=== PATIENT | female | born 1980 | race Hispanic/Latino ===

== ENCOUNTER 2018-06-22 17:49 | Emergency (ER) | payer OTHER, SELFPAY ==
[2018-06-22] MEDS ORDERED: HYDROCODONE/APAP 5/325 MG TAB ONE (20:02)
[2018-06-22] MEDS ORDERED: ONDANSETRON 4 MG (ODT) TAB ONE (20:02)
--- NOTE | 2018-06-22 20:23 | RAD REPORT ---
EXAM DESCRIPTION: CT - Head Brain Wo Cont - 06/22/2018 8:04 pm CLINICAL HISTORY: HEADACHE COMPARISON: No comparisons TECHNIQUE: All CT scans are performed using dose optimization technique as appropriate and may inclu de automated exposure control or mA/KV adjustment according to patient size. FINDINGS: No intracranial hemorrhage, hydrocephalus or extra-axial fluid collection.No areas of brai n edema or evidence of midline shift. The paranasal sinuses and mastoids are clear. The calvarium is intact. IMPRESSION: No acute intracranial abnormality.
--- NOTE | 2018-06-22 21:11 | ER ---
Nurse's Notes [facility] Name: Jacquelin Remy Age: 37 yrs Sex: Female : 1980 Arrival Date: 06/22/2018 Time: 17:54 Bed 2 Private MD: Diagnosis: Acute headache Presentation: 06/22 17:59 Presenting complaint: Patient states: i had this headache for 2 weeks, but today is the hj worse; more on the back of my head, reports nausea and vomited x 3; took ibuprofen 1030 am today;. Transition of care: patient was not received from another setting of care. Onset of symptoms was June 22, 2018. Risk Assessment: Do you want to hurt yourself or someone else? Patient reports no desire to harm self or others. Initial Sepsis Screen: Does the patient meet any 2 criteria? No. Patient's initial sepsis screen is negative. Does the patient have a suspected source of infection? No. Patient's initial sepsis screen is negative. Care prior to arrival: None. 17:59 Method Of Arrival: Ambulatory 17:59 Acuity: JANICE 3 hj Triage Assessment: 18:01 Headache History: The patient has had previous headaches. General: Appears in no hj apparent distress. uncomfortable, Behavior is calm, cooperative, appropriate for age. Pain: Complains of pain in head Pain currently is 10 out of 10 on a pain scale. Pain began 1 day ago. Also complains of nausea. Neuro: Level of Consciousness is awake, alert, obeys commands, Oriented to person, place, time, situation, Appropriate for age. 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 - Social history:: Smoking status: Patient/guardian denies using tobacco, Patient/guardian denies using alcohol. - Ebola Screening: : Patient negative for fever greater than or equal to 101.5 degrees Fahrenheit, and additional compatible Ebola Virus Disease symptoms Patient denies exposure to infectious person Patient denies travel to an Ebola-affected area in the 21 days before illness onset. Screenin:01 Abuse screen: Denies threats or abuse. Denies injuries from another. Nutritional hj screening: No deficits noted. Tuberculosis screening: No symptoms or risk factors identified. Fall Risk None identified. Assessment: 20:00 General: Appears in no apparent distress. uncomfortable, Behavior is calm, cooperative, tl2 appropriate for age. Pain: Complains of pain in right occipital area and right side of the back of head. Neuro: Level of Consciousness is awake, alert, obeys commands, Oriented to person, place, time, situation. Cardiovascular: Denies chest pain. Respiratory: Airway is patent Respiratory effort is even, unlabored, Respiratory pattern is regular, symmetrical. GI: Reports nausea. : No signs and/or symptoms were reported regarding the genitourinary system. Derm: Skin is pink, warm \T\ dry. 21:19 Reassessment: Patient appears in no apparent distress at this time. Patient and/or tl2 family updated on plan of care and expected duration. Pain level reassessed. Patient is alert, oriented x 3, equal unlabored respirations, skin warm/dry/pink. Pt states nausea is gone and headache has improved slightly. Pt verbalized understanding of discharge instructions, need for follow up and prescription usage Patient states feeling better. Vital Signs: 18:02 BP 118 / 84; Pulse 99; Resp 18; Temp 97.2(TE); Pulse Ox 100% on R/A; Weight 54.43 kg; hj Height 5 ft. 3 in. (160.02 cm); Pain 10/10; 19:48 BP 124 / 75; Pulse 81; Resp 16; Pulse Ox 98% on R/A; mt 21:02 BP 106 / 74; Pulse 77; Resp 18; Pulse Ox 99% on R/A; tl2 18:02 Body Mass Index 21.26 (54.43 kg, 160.02 cm) ED Course: 17:54 Patient arrived in ED. mr 18:00 Triage completed. 18:01 Arm band placed on right wrist. 18:03 Patient has correct armband on for positive identification. Bed in low position. Call light in reach. Side rails up X 1. 19:38 Toan Mares MD is Attending Physician. pkl 19:54 Radiology exam delayed due to test not completed at this time. ok 19:59 Brittani Noble RN is Primary Nurse. tl2 20:[address] ok 20:04 CT completed. Patient tolerated procedure well. Patient moved back from MD. ok 20:04 CT Head Brain wo Cont In Process Unspecified. EDMS 21:10 Jeremy Horvath MD is Referral Physician. pkl 21:19 No provider procedures requiring assistance completed. Patient did not have IV access tl2 during this emergency room visit. Administered Medications: 19:58 Drug: Zofran 4 mg Route: PO; tl2 21:23 Follow up: Response: No adverse reaction; Nausea is decreased tl2 19:59 Drug: [place] 5 mg-325 mg 1 tabs Route: PO; tl2 21:22 Follow up: Response: No adverse reaction; Pain is decreased tl2 Outcome: 21:10 Discharge ordered by . pkl 21:19 Discharged to home ambulatory, with family. tl2 21:19 Condition: stable 21:19 Discharge instructions given to patient, Instructed on discharge instructions, follow up and referral plans. medication usage, Demonstrated understanding of instructions, follow-up care, medications, Prescriptions given X 2. 21:23 Patient left the ED. tl2 Signatures: Dispatcher [employer] EDMS Toan Mares MD MD pkl Jerica Adams mr Tad Bob RN RN Brittani Worrell RN RN tl2 Kavon Cole Mor[place] co Corrections: (The following items were deleted from the chart) 18:04 18:02 Pulse 99bpm; Resp 18bpm; Pulse Ox 100% RA; Temp 97.2F Temporal; 54.43 kg; Height hj 5 ft. 3 in.; BMI: 21.2; Pain 10/10; hj 19:54 19:54 Patient moved to [facility]
--- NOTE | 2018-06-22 21:12 | EDPHYS ---
Physician Documentation [facility] Name: Jacquelin Remy Age: 37 yrs Sex: Female : 1980 Arrival Date: 06/22/2018 Time: 17:54 Bed 2 Private MD: ED Physician Toan Mares HPI: 06/22 19:50 This 37 yrs old Female presents to ER via Ambulatory with complaints of pkl Headache, Vomiting. 19:50 The patient complains of pain to the top of head, left side of the back of head, left pkl occipital area, right side of the back of head and right occipital area. The patient describes the headache as constant. Onset: The symptoms/episode began/occurred 2 week(s) ago, and became worse today. Associated signs and symptoms: Pertinent positives: nausea, vomiting. 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 - Social history:: Smoking status: Patient/guardian denies using tobacco, Patient/guardian denies using alcohol. - Ebola Screening: : Patient negative for fever greater than or equal to 101.5 degrees Fahrenheit, and additional compatible Ebola Virus Disease symptoms Patient denies exposure to infectious person Patient denies travel to an Ebola-affected area in the 21 days before illness onset. ROS: 19:50 Eyes: Negative for injury, pain, redness, and discharge, ENT: Negative for injury, pkl pain, and discharge, Neck: Negative for injury, pain, and swelling, Cardiovascular: Negative for chest pain, palpitations, and edema, Respiratory: Negative for shortness of breath, cough, wheezing, and pleuritic chest pain. 19:50 Abdomen/GI: Positive for nausea and vomiting. 19:50 Back: Negative for acute changes. 19:50 : Negative for urinary symptoms. 19:50 MS/extremity: Negative for acute changes. 19:50 Skin: Negative for rash. 19:50 Neuro: Positive for headache. Exam: 19:50 Head/Face: Normocephalic, atraumatic. Eyes: Pupils equal round and reactive to light, pkl extra-ocular motions intact. Lids and lashes normal. Conjunctiva and sclera are non-icteric and not injected. Cornea within normal limits. Periorbital areas with no swelling, redness, or edema. ENT: Nares patent. No nasal discharge, no septal abnormalities noted. Tympanic membranes are normal and external auditory canals are clear. Oropharynx with no redness, swelling, or masses, exudates, or evidence of obstruction, uvula midline. Mucous membranes moist. Neck: Trachea midline, no thyromegaly or masses palpated, and no cervical lymphadenopathy. Supple, full range of motion without nuchal rigidity, or vertebral point tenderness. No Meningismus. Chest/axilla: Normal chest wall appearance and motion. Nontender with no deformity. No lesions are appreciated. Cardiovascular: Regular rate and rhythm with a normal S1 and S2. No gallops, murmurs, or rubs. Normal PMI, no JVD. No pulse deficits. Respiratory: Lungs have equal breath sounds bilaterally, clear to auscultation and percussion. No rales, rhonchi or wheezes noted. No increased work of breathing, no retractions or nasal flaring. Abdomen/GI: Soft, non-tender, with normal bowel sounds. No distension or tympany. No guarding or rebound. No evidence of tenderness throughout. Back: No spinal tenderness. No costovertebral tenderness. Full range of motion. Skin: Warm, dry with normal turgor. Normal color with no rashes, no lesions, and no evidence of cellulitis. MS/ Extremity: Pulses equal, no cyanosis. Neurovascular intact. Full, normal range of motion. Neuro: Awake and alert, GCS 15, oriented to person, place, time, and situation. Cranial nerves II-XII grossly intact. Motor strength 5/5 in all extremities. Sensory grossly intact. Cerebellar exam normal. Normal gait. Vital Signs: 18:02 BP 118 / 84; Pulse 99; Resp 18; Temp 97.2(TE); Pulse Ox 100% on R/A; Weight 54.43 kg; hj Height 5 ft. 3 in. (160.02 cm); Pain 10/10; 19:48 BP 124 / 75; Pulse 81; Resp 16; Pulse Ox 98% on R/A; mt 21:02 BP 106 / 74; Pulse 77; Resp 18; Pulse Ox 99% on R/A; tl2 18:02 Body Mass Index 21.26 (54.43 kg, 160.02 cm) MDM: 19:38 Patient medically screened. pkl 21:09 Data reviewed: vital signs, nurses notes, radiologic studies, CT scan. pkl 06/22 19:57 Order name: Urine --Ancillary (enter results) tl2 06/22 19:49 Order name: CT Head Brain wo Cont; Complete Time: 21:08 pkl 06/22 19:53 Order name: Urine Test (obtain specimen); Complete Time: 19:57 tl2 Administered Medications: 19:58 Drug: Zofran 4 mg Route: PO; tl2 21:23 Follow up: Response: No adverse reaction; Nausea is decreased tl2 19:59 Drug: [place] 5 mg-325 mg 1 tabs Route: PO; tl2 21:22 Follow up: Response: No adverse reaction; Pain is decreased tl2 Disposition: 06/22/18 21:10 Discharged to Home. Impression: Acute headache. - Condition is Stable. - Prescriptions for Ultram 50 mg Oral Tablet - take 1 tablet by ORAL route every 8 hours As needed; 20 tablet. Zofran 4 mg Oral Tablet - take 1 tablet by ORAL route every 12 hours As needed; 10 tablet. - Medication Reconciliation Form, Thank You Letter, Antibiotic Education, Prescription Opioid Use form. - Follow up: Jeremy Horvath MD; When: 2 - 3 days; Reason: Re-evaluation by your physician. - Problem is new. - Symptoms have improved. Signatures: Dispatcher [employer] EDMS Toan Mares MD MD pk Tad Bob RN RN Brittani Noble RN RN tl2 Corrections: (The following items were deleted from the chart) 21:23 21:10 06/22/2018 21:10 Discharged to Home. Impression: Acute headache. Condition is tl2 Stable. Forms are Medication Reconciliation Form, Thank You Letter, Antibiotic Education, Prescription Opioid Use. Follow up: Jeremy Horvath; When: 2 - 3 days; Reason: Re-evaluation by your physician. Problem is new. Symptoms have improved. pkl
== END 2018-06-22 21:23 | disposition home or self-care (01) ==
LOC: ER 17:49
DX: R51 Headache (principal); Z88.8 Allergy status to other drugs, medicaments and biological substances
CPT/HCPCS: 70450; 81025; 99284

== ENCOUNTER 2020-10-26 21:30 | Emergency (ER) | payer SELFPAY ==
--- OUTSIDE RECORDS SUMMARY | 2020-10-26 21:32 | XMS REPORT | Continuity of Care Document ---
:1980 Author Organization [facility] t Address [address] [place] [address] Care Team Providers Name Role Phone [place] CAR Attending Clinician Lab, Fam Pob I Attending Clinician Unavailable Problems This patient has no known problems. Allergies, Adverse Reactions, Alerts This patient has no known allergies or adverse reactions. Medications This patient has no known medications. Procedures This patient has no known procedures. Encounters Start End Encounter Admission Attending Care Care Encounter Source Date/Time Date/Time Type Type Clinicians Facility Department ID 2019-12-25 2019-12-25 Telephone [facility] [id number] 00:00:00 00:00:00 [facility] [id number] [place] [id number] [facility] [id number] [address] 2019-12-23 2019-12-23 Laboratory Lab, [facility] [id number] 07:45:47 08:05:47 Only Fam [facility] [id number] [place] [id number] Professio [id number] [phone] Results This patient has no known results.
[2020-10-26] MEDS ORDERED: MORPHINE 2 MG/ML SYR ONE (23:35)
[2020-10-26] MEDS ORDERED: NA CHLORIDE 0.9% 1,000 ML ONE (23:36)
[2020-10-26] MEDS ORDERED: ONDANSETRON 4 MG/2 ML VIAL ONE (23:36)
[2020-10-26 23:41] LABS: Absolute Lymphocytes (CBC) 2.8 K/uL (0.7-4.9); Basophils % 1.3 % (0-1.3); Lymphocytes % 30.7 % (15.3-44.8); MPV 7.1 fL (7.6-11.3); RBC Red Blood Cell Count 4.56 M/uL (3.86-4.86)
[2020-10-26 23:42] LABS: Protime INR 1.03
[2020-10-26 23:54] LABS: ALT/SGPT 18 U/L (12-78); AST/SGOT 6 U/L (15-37); Albumin 4.2 g/dL (3.4-5.0); Alkaline Phosphatase 70 U/L (45-117); BUN Blood Urea Nitrogen 5 mg/dL (7-18); Bicarbonate 27 mmol/L (21-32); Bilirubin Direct < 0.1 mg/dL (0-0.2); Bilirubin Total 0.2 mg/dL (0.2-1.0); Glucose Level 107 mg/dL (74-106); Magnesium 2.4 mg/dL (1.8-2.4); NT PRO-BNP 41 pg/mL (<125); Potassium 3.9 mmol/L (3.5-5.1); Protein, Total 7.9 g/dL (6.4-8.2); Sodium Level 139 mmol/L (136-145); Troponin (Emerg Dept Use Only) < 0.02 ng/mL (0.0-0.045)
--- NOTE | 2020-10-27 00:18 | EDPHYS ---
Physician Documentation [facility] Name: Jacquelin Remy Age: 40 yrs Sex: Female : 1980 Arrival Date: 10/26/2020 Time: 21:32 Bed 6 Private MD: ED Physician Filipe Albert HPI: 10/26 23:13 This 40 yrs old Female presents to ER via Ambulatory with complaints of FEET jason BURNING, NAUSEA. 23:13 The patient presents with pain. The complaints affect the right foot and left foot. jason Context: The problem was sustained at an unknown site. Onset: The symptoms/episode began/occurred 3 day(s) ago. Modifying factors: The symptoms are alleviated by nothing. the symptoms are aggravated by nothing. Associated signs and symptoms: Pertinent positives: weakness. Treatment prior to arrival includes: no previous treatment. Severity of symptoms: At their worst the symptoms were mild, moderate, in the emergency department the symptoms are unchanged. The patient has not experienced similar symptoms in the past. 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 - Social history:: Smoking status: Patient denies any tobacco usage or history of. - Family history:: not pertinent. ROS: 23:13 Constitutional: Negative for fever, chills, and weight loss, Eyes: Negative for injury, jason pain, redness, and discharge, ENT: Negative for injury, pain, and discharge, Neck: Negative for injury, pain, and swelling, Cardiovascular: Negative for chest pain, palpitations, and edema, Respiratory: Negative for shortness of breath, cough, wheezing, and pleuritic chest pain, Abdomen/GI: Negative for abdominal pain, nausea, vomiting, diarrhea, and constipation, Back: Negative for injury and pain, : Negative for injury, bleeding, discharge, and swelling, Skin: Negative for injury, rash, and discoloration, Neuro: Negative for headache, weakness, numbness, tingling, and seizure, Psych: Negative for depression, anxiety, suicide ideation, homicidal ideation, and hallucinations, Allergy/Immunology: Negative for hives, rash, and allergies, Endocrine: Negative for neck swelling, polydipsia, polyuria, polyphagia, and marked weight changes, Hematologic/Lymphatic: Negative for swollen nodes, abnormal bleeding, and unusual bruising. 23:13 MS/extremity: Negative for acute changes. Exam: 23:13 Constitutional: This is a well developed, well nourished patient who is awake, alert, jason and in no acute distress. Head/Face: Normocephalic, atraumatic. Eyes: Pupils equal round and reactive to light, extra-ocular motions intact. Lids and lashes normal. Conjunctiva and sclera are non-icteric and not injected. Cornea within normal limits. Periorbital areas with no swelling, redness, or edema. ENT: Nares patent. No nasal discharge, no septal abnormalities noted. Tympanic membranes are normal and external auditory canals are clear. Oropharynx with no redness, swelling, or masses, exudates, or evidence of obstruction, uvula midline. Mucous membranes moist. Neck: Trachea midline, no thyromegaly or masses palpated, and no cervical lymphadenopathy. Supple, full range of motion without nuchal rigidity, or vertebral point tenderness. No Meningismus. Chest/axilla: Normal chest wall appearance and motion. Nontender with no deformity. No lesions are appreciated. Cardiovascular: Regular rate and rhythm with a normal S1 and S2. No gallops, murmurs, or rubs. Normal PMI, no JVD. No pulse deficits. Respiratory: Lungs have equal breath sounds bilaterally, clear to auscultation and percussion. No rales, rhonchi or wheezes noted. No increased work of breathing, no retractions or nasal flaring. Abdomen/GI: Soft, non-tender, with normal bowel sounds. No distension or tympany. No guarding or rebound. No evidence of tenderness throughout. Back: No spinal tenderness. No costovertebral tenderness. Full range of motion. Skin: Warm, dry with normal turgor. Normal color with no rashes, no lesions, and no evidence of cellulitis. MS/ Extremity: Pulses equal, no cyanosis. Neurovascular intact. Full, normal range of motion. Neuro: Awake and alert, GCS 15, oriented to person, place, time, and situation. Cranial nerves II-XII grossly intact. Motor strength 5/5 in all extremities. Sensory grossly intact. Cerebellar exam normal. Normal gait. Psych: Awake, alert, with orientation to person, place and time. Behavior, mood, and affect are within normal limits. 23:13 Musculoskeletal/extremity: DVT Exam: No signs of deep vein thrombosis. no pain, no swelling, no tenderness, negative Homans' sign noted on exam, no appreciated bluish discoloration, no erythema, no increased warmth. 10/27 00:02 ECG was reviewed by the Attending Physician. jason 00:14 Musculoskeletal/extremity: ROM: full active range of motion, full passive range of jason motion, Circulation is intact in all extremities. Sensation intact. Compartment Syndrome exam of affected extremity: is normal. Joints: All joints appear normal with full range of motion. Weight bearing: able to fully bear weight, Tendon exam: specific tendon testing normal through active and passive range of motion 00:14 Neuro: Orientation: is normal, appropriate for stated age, no acute changes, Mentation: is normal, appropriate for stated age, no acute changes, Memory: is normal, appropriate for stated age, no acute changes, Cranial nerves: grossly normal, is grossly normal based on the patient's age, no acute changes, Cerebellar function: is grossly normal, is grossly normal based on the patient's age, no acute changes, Motor: is normal, is grossly normal based on the patient's age, no acute changes, moves all fours, strength is 5/5 in all extremities, Sensation: no obvious gross deficits, Gait: is steady, appropriate for age, Deep tendon reflexes are 2+ (normal) in the bilateral brachioradialis, bicep, tricep and patellar and Achilles tendons, Babinski testing is normal, seizure activity, is not displayed by the patient. Vital Signs: 10/26 21:45 BP 143 / 85; Pulse 84; Resp 16 S; Temp 97.4(TE); Pulse Ox 99% on R/A; Weight 56.7 kg ca1 (R); Height 5 ft. 3 in. (160.02 cm) (R); Pain 03/28; 10/27 00:20 BP 127 / 86; Pulse 80; Resp 18; Pulse Ox 99% ; ea 10/26 21:45 Body Mass Index 22.14 (56.70 kg, 160.02 cm) ca1 MDM: 10/26 22:42 Patient medically screened. [facility] 23:15 Differential diagnosis: contusion, tendonitis. Data reviewed: vital signs, nurses [facility] notes, lab test result(s), EKG, radiologic studies, CT scan, plain films. 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 Test interpretation: by ED physician or midlevel provider: ECG, plain radiologic studies. Counseling: I had a detailed discussion with the patient and/or guardian regarding: the historical points, exam findings, and any diagnostic results supporting the discharge/admit diagnosis, lab results, radiology results, the need for outpatient follow up, for definitive care, a family practitioner. 10/26 23:12 Order name: Basic Metabolic Panel; Complete Time: 00:01 [facility] 10/26 23:12 Order name: CBC with Diff; Complete Time: 00:01 [facility] 10/26 23:12 Order name: LFT's; Complete Time: 00:01 [facility] 10/26 23:12 Order name: Magnesium; Complete Time: 00:01 [facility] 10/26 23:12 Order name: NT PRO-BNP; Complete Time: 00:01 [facility] 10/26 23:12 Order name: PT-INR; Complete Time: 00: [facility] 10/26 23:12 Order name: Troponin (emerg Dept Use Only); Complete Time: 00:01 [facility] 10/26 23:12 Order name: XRAY Chest (1 view) [facility] 10/26 23:12 Order name: EKG; Complete Time: 23:13 [facility] 10/27 00:18 Order name: Urine Dipstick-Ancillary EDMS 10/27 00:20 Order name: Urine --Ancillary (enter results) ds4 10/26 23:12 Order name: Cardiac monitoring; Complete Time: 23:57 [facility] 10/26 23:12 Order name: EKG - Nurse/Tech; Complete Time: 23:58 [facility] 10/26 23:12 Order name: IV Saline Lock; Complete Time: 23:31 [facility] 10/26 23:12 Order name: Labs collected and sent; Complete Time: 23:32 [facility] 10/26 23:12 Order name: O2 Per Protocol; Complete Time: 23:32 [facility] 10/26 23:12 Order name: O2 Sat Monitoring; Complete Time: 23:32 [facility] 10/26 23:12 Order name: Urine Dipstick-Ancillary (obtain specimen); Complete Time: 23:48 [facility] 10/26 23:12 Order name: Urine Test (obtain specimen); Complete Time: 23:48 [facility] EC/11 00:02 Rate is 74 beats/min. Rhythm is regular. QRS [place] is Normal. DC interval is normal. QRS jason interval is normal. QT interval is normal. No Q waves. T waves are Normal. No ST changes noted. Clinical impression: NSR w/ Non-specific ST/T Changes and No evidence of ischemia. Interpreted by me. Reviewed by me. Administered Medications: 10/26 23:30 Drug: NS 0.9% 1000 ml Route: IV; Rate: 1 bolus; Site: right antecubital; ea 10/27 00:27 Follow up: IV Status: Completed infusion; IV Intake: 1000ml ea 10/26 23:31 Drug: morphine 2 mg Route: IVP; Site: right antecubital; ea 10/27 00:15 Follow up: Response: No adverse reaction 10/26 23:31 Drug: Zofran (Ondansetron) 4 mg Route: IVP; Site: right antecubital; ea 10/27 00:15 Follow up: Response: No adverse reaction Disposition: 10/27/20 00:17 Discharged to Home. Impression: Pain in left leg, Pain in right leg, Nausea and vomiting. - Condition is Stable. - Discharge Instructions: Musculoskeletal Pain, Nausea and Vomiting, Adult, Nausea, Adult, Nausea and Vomiting, Adult, [id number]. - Prescriptions for Pepcid 20 mg Oral Tablet - take 1 tablet by ORAL route every 12 hours for 10 days; 20 tablet. Zofran 4 mg Oral Tablet - take 1 tablet by ORAL route every 12 hours As needed; 20 tablet. - Medication Reconciliation Form, Thank You Letter, Antibiotic Education, Prescription Opioid Use form. - Work release form (10/27/20 00:27). rr5 - Follow up: Private Physician; When: 2 - 3 days; Reason: Recheck today's complaints, Continuance of care, Re-evaluation by your physician. Follow up: [facility]; When: 2 - 3 days; Reason: Recheck today's complaints, Re-evaluation by your physician. - Problem is new. - Symptoms have improved. Signatures: Dispatcher [employer] EDFilipe Em MD MD cha Antunez, Elena, RN Shaylee Hooper ea RN Morris Saab RN rr5 Corrections: (The following items were deleted from the chart) 00:27 00:17 10/27/2020 00:17 Discharged to Home. Impression: Pain in left leg; Pain in right ea leg; Nausea and vomiting. Condition is Stable. Discharge Instructions: Musculoskeletal Pain, Nausea and Vomiting, Adult, Nausea, Adult, Nausea and Vomiting, Adult, [id number]. Prescriptions for Pepcid 20 mg Oral Tablet - take 1 tablet by ORAL route every 12 hours for 10 days; 20 tablet, Zofran 4 mg Oral Tablet - take 1 tablet by ORAL route every 12 hours As needed; 20 tablet. and Forms are Medication Reconciliation Form, Thank You Letter, Antibiotic Education, Prescription Opioid Use. Follow up: Private Physician; When: 2 - 3 days; Reason: Recheck today's complaints, Continuance of care, Re-evaluation by your physician. Follow up: [facility]; When: 2 - 3 days; Reason: Recheck today's complaints, Re-evaluation by your physician. Problem is new. Symptoms have improved. jason
--- NOTE | 2020-10-27 00:18 | ER ---
Nurse's Notes [facility] Name: Jacquelin Remy Age: 40 yrs Sex: Female : 1980 Arrival Date: 10/26/2020 Time: 21:32 Bed 6 Private MD: Diagnosis: Pain in left leg;Pain in right leg;Nausea and vomiting Presentation: 10/26 21:45 Chief complaint: Patient states: Burning pain on eulalio feet since yesterday, nausea with ca1 the pain. Denies injury to feet. Hasn't had experience this in the past. Coronavirus screen: Client denies travel out of the [place] in the last 14 days. At this time, the client does not indicate any symptoms associated with coronavirus-19. Ebola Screen: Patient negative for fever greater than or equal to 101.5 degrees Fahrenheit, and additional compatible Ebola Virus Disease symptoms Patient denies exposure to infectious person. Patient denies travel to an Ebola-affected area in the 21 days before illness onset. No symptoms or risks identified at this time. Initial Sepsis Screen: Does the patient meet any 2 criteria? No. Patient's initial sepsis screen is negative. Does the patient have a suspected source of infection? No. Patient's initial sepsis screen is negative. Risk Assessment: Do you want to hurt yourself or someone else? Patient reports no desire to harm self or others. 21:45 Method Of Arrival: Ambulatory ca1 21:45 Acuity: JANICE 3 ca1 21:45 Onset of symptoms was October 26, 2020. 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 - Social history:: Smoking status: Patient denies any tobacco usage or history of. - Family history:: not pertinent. Screenin:37 Abuse screen: Denies threats or abuse. Denies injuries from another. Nutritional rr5 screening: No deficits noted. Tuberculosis screening: No symptoms or risk factors identified. Fall Risk None identified. Total Mendez Fall Scale indicates No Risk (0-24 pts). Assessment: 22:36 General: Appears in no apparent distress. uncomfortable, Behavior is calm, cooperative, rr5 appropriate for age. Pain: Complains of pain in right leg and left leg Quality of pain is described as burning, Pain began gradually, Is intermittent. Neuro: Level of Consciousness is awake, alert, obeys commands, Oriented to person, place, time, situation. Cardiovascular: Capillary refill < 3 seconds Patient's skin is warm and dry. Respiratory: Airway is patent Respiratory effort is even, unlabored, Respiratory pattern is regular, symmetrical. GI: Abdomen is flat, Reports nausea. : No signs and/or symptoms were reported regarding the genitourinary system. EENT: No signs and/or symptoms were reported regarding the EENT system. Derm: Skin is intact, is healthy with good turgor, Skin temperature is warm. Musculoskeletal: Capillary refill < 3 seconds, Reports burning sensation lower extremities. 10/27 00:26 Reassessment: Patient and/or family updated on plan of care and expected duration. Pain ea level reassessed. Patient is alert, oriented x 3, equal unlabored respirations, skin warm/dry/pink. Discharge instruction given to patient verbalized the understanding of instruction. Vital Signs: 10/26 21:45 BP 143 / 85; Pulse 84; Resp 16 S; Temp 97.4(TE); Pulse Ox 99% on R/A; Weight 56.7 kg ca1 (R); Height 5 ft. 3 in. (160.02 cm) (R); Pain 03/28; 10/27 00:20 BP 127 / 86; Pulse 80; Resp 18; Pulse Ox 99% ; ea 10/26 21:45 Body Mass Index 22.14 (56.70 kg, 160.02 cm) ca1 ED Course: 10/26 21:32 Patient arrived in ED. ag3 21:47 Triage completed. ca1 21:48 Arm band placed on right wrist. ca1 22:35 Morris Lieberman, RN is Primary Nurse. rr5 22:37 Patient has correct armband on for positive identification. Placed in gown. Bed in low rr5 position. Call light in reach. 22:42 Filipe Albert MD is Attending Physician. jason 23:27 XRAY Chest (1 view) In Process Unspecified. EDOH 23:30 Inserted saline lock: 20 gauge in right antecubital area, using aseptic technique. ea Blood collected. 10/27 00:17 Gurmeet Downey DO is Referral Physician. [facility] 00:25 No provider procedures requiring assistance completed. IV discontinued, intact, ea bleeding controlled, No redness/swelling at site. Pressure dressing applied. Administered Medications: 10/26 23: Drug: NS 0.9% 1000 ml Route: IV; Rate: 1 bolus; Site: right antecubital; ea 10/27 00:27 Follow up: IV Status: Completed infusion; IV Intake: 1000ml ea 10/26 22: Drug: morphine 2 mg Route: IVP; Site: right antecubital; ea 10/27 00:15 Follow up: Response: No adverse reaction ea 10/26 22: Drug: Zofran (Ondansetron) 4 mg Route: IVP; Site: right antecubital; ea 10/27 00:15 Follow up: Response: No adverse reaction ea Intake: 00:27 IV: 1000ml; Total: 1000ml. ea Outcome: 00:17 Discharge ordered by . [facility] 00:25 Discharged to home ambulatory, with family. ea 00:25 Condition: stable 00:25 Discharge instructions given to patient, Instructed on discharge instructions, follow up and referral plans. medication usage, Demonstrated understanding of instructions, follow-up care, medications. 00:27 Patient left the ED. ea Signatures: Dispatcher [employer] EDOH Filipe Albert MD MD cha Antunez, Elena, RN RN Harmony Schuster ag3 Morris Lieberman, RN RN rr5 Shaylee John RN RN ca1
[2020-10-27 00:19] LABS: Urine Blood Trace-intact (Negative); Urine Glucose Negative (Negative); Urine Protein Negative (Negative); Urine Specific Gravity 1.015 (1.005-1.030); Urine pH 6.5 (5.0-7.0)
[2020-10-27 00:38] LABS: Urine Specific Gravity/Preg 1.015 (1.005-1.030)
[2020-10-27 01:18] VITALS: TEMP 97.4; O2SAT 99
[2020-10-27 01:19] VITALS: BP 127/86
--- NOTE | 2020-10-27 07:50 | RAD REPORT ---
EXAM DESCRIPTION: Patricia Single View10/26/2020 11:27 pm CLINICAL HISTORY: Cough COMPARISON: none FINDINGS: The lungs appear clear of acute infiltrate. The heart is normal size IMPRESSION: No acute abnormalities displayed
--- NOTE | 2020-10-27 17:43 | EKG ---
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
== END 2020-10-27 00:27 | disposition home or self-care (01) ==
LOC: ER 21:30
DX: M79.605 Pain in left leg (principal); M79.604 Pain in right leg; R11.2 Nausea with vomiting, unspecified; Z88.8 Allergy status to other drugs, medicaments and biological substances
CPT/HCPCS: 36415; 71045; 80048; 80076; 81003; 81025; 83735; 83880; 84484; 85025; 85610; 93005; 96361; 96374; 96375; 99284; J2270; J2405; J7030